=== PATIENT | male | born 1970 | race African-American/Black ===

== ENCOUNTER 2020-02-18 05:51 | Emergency (ER) | payer BC, OTHER ==
[2020-02-18] MEDS ORDERED: Ketorolac Tromethamine 30 MG/ML VIAL ONE (07:30)
== END 2020-02-18 07:56 | disposition home or self-care (01) ==
LOC: ERS 05:51
DX: M54.41 Lumbago with sciatica, right side (principal); I10 Essential (primary) hypertension; E78.5 Hyperlipidemia, unspecified; I25.2 Old myocardial infarction; R73.03 Prediabetes; F17.210 Nicotine dependence, cigarettes, uncomplicated
CPT/HCPCS: 96372; 99283; J1885

== ENCOUNTER 2020-03-05 15:06 | Emergency (ER) | payer BC ==
[2020-03-05] MEDS ORDERED: Morphine 4 MG/ML VIAL ONE (16:26)
== END 2020-03-05 17:24 | disposition home or self-care (01) ==
LOC: ERS 15:06
DX: M54.41 Lumbago with sciatica, right side (principal); I10 Essential (primary) hypertension; E78.5 Hyperlipidemia, unspecified; I25.2 Old myocardial infarction; E11.9 Type 2 diabetes mellitus without complications; F17.210 Nicotine dependence, cigarettes, uncomplicated
CPT/HCPCS: 96372; 99283; J2270

== ENCOUNTER 2020-12-07 04:09 | Inpatient (IN) | payer BC, OTHER, SELFPAY ==
[2020-12-07] MEDS ORDERED: Verapamil 5 MG/2 ML VIAL ONE (04:12)
[2020-12-07] MEDS ORDERED: Adenosine 6 MG/2 ML VIAL ONE (04:12)
[2020-12-07] MEDS ORDERED: Nitroglycerin 100MG/250ML BOT 0 ML ONE (04:12)
[2020-12-07] MEDS ORDERED: Morphine 4 MG/ML VIAL ONE ×2 (04:23)
[2020-12-07 04:36] LABS: #Basophils 0.1 thou/uL (0.0-0.2); #Eosinphils 0.2 thou/uL (0.0-0.7); #Lymphocytes 2.5 thou/uL (1.20-3.40); #Monocytes 0.7 thou/uL (0.11-0.59); #Neutrophils 4.6 thou/uL (1.40-6.50); %Basophils 0.8 % (0.0-1.0); %Eosinophils 2.4 % (0.0-10.0); %Lymphocytes 31.2 % (21.0-51.0); %Monocytes 8.3 % (0.0-10.0); %Neutrophils 57.2 % (42.0-75.0); Hemoglobin 13.7 g/dL (14.0-18.0); Mean Corpuscular HGB CONC 33.1 g/dL (32.0-36.0); Mean Corpuscular Hemoglobin 29.3 pg (27.0-31.0); Mean Corpuscular Volume 88.3 fL (78.0-98.0); Mean Platelet Volume 7.2 fL (7.4-10.4); Platelet Count 238 thou/uL (130-400); RBC Distribution Width 12.3 % (11.5-14.5); Red Blood Cell (RBC) Count 4.68 mill/uL (4.70-6.10)
[2020-12-07 04:47] LABS: INR-International Normal Ratio 1.1; Prothrombin Time 13.9 sec (12.0-14.7)
[2020-12-07 04:48] LABS: PTT 28.4 sec (22.9-36.1)
[2020-12-07 05:12] LABS: Anion Gap 16 mmol/L (10-20); BUN (Urea Nitrogen) 9 mg/dL (8.4-25.7); Calc. Creatinine Clearance 0 mL/min (70-130); Carbon Dioxide 23 mmol/L (22-29); Chloride 106 mmol/L (98-107); Potassium 3.8 mmol/L (3.5-5.1); Sodium 141 mmol/L (136-145)
[2020-12-07 05:13] LABS: ALT (SGPT) 11 U/L (8-55); AST (SGOT) 21 U/L (5-34); Albumin 4.1 g/dL (3.5-5.0); Alkaline Phosphatase 102 U/L (40-110); Bilirubin, Total 0.4 mg/dL (0.2-1.2); Calcium 8.9 mg/dL (7.8-10.44); Globulin 2.7 g/dL (2.4-3.5); Glucose 120 mg/dL (70-105); Protein, Total 6.8 g/dL (6.0-8.3)
[2020-12-07 06:05] VITALS: BMI 26.4
[2020-12-07] MEDS ORDERED: traMADol HCl 50 MG TAB PO PRN (06:41)
[2020-12-07] MEDS ORDERED: cloNIDine 0.1 MG TAB PO PRN (06:41)
[2020-12-07] MEDS ORDERED: Milk Of Magnesia 30 ML UDCUP PO PRN (06:41)
[2020-12-07] MEDS ORDERED: Sodium Chloride 0.9% 1,000 ML IV SCH (06:45)
[2020-12-07 08:12] LABS: Troponin I 35.435 ng/mL (< 0.028)
[2020-12-07] MEDS: Aspirin Chewable 81 MG TAB PO SCH (09:17)
[2020-12-07] MEDS: Clopidogrel Bisulfate 75 MG TAB PO SCH (09:17)
[2020-12-07] MEDS: Acetaminophen/Codeine 30-300mg Tablet PO PRN ×3 (10:47→20:00)
[2020-12-07 13:44] LABS: Troponin I 82.138 ng/mL (< 0.028)
[2020-12-07] MEDS ORDERED: Tenecteplase 50 MG - STEMI KIT ONE (14:33)
[2020-12-07] MEDS ORDERED: Iopamidol 370 76% 100 ML VIAL ONE (14:40)
[2020-12-07] MEDS ORDERED: Iopamidol 370 76% 50 ML VIAL FS ONE (14:40)
[2020-12-07 17:03] LABS: SARS-CoV-2 PCR by NAA Not Detected (NotDetected)
[2020-12-07] MEDS ORDERED: Morphine 4 MG/ML VIAL SLOW IVP PRN (18:24)
[2020-12-07] MEDS ORDERED: Furosemide 20 MG/2 ML VIAL SLOW IVP SCH (18:30)
[2020-12-07 19:30] LABS: Critical Call Chem Troponin I RESULT DECREASING; Troponin I 68.407 ng/mL (< 0.028)
[2020-12-07] MEDS: Atorvastatin Calcium 40 MG TAB PO SCH (20:01)
[2020-12-08 04:11] LABS: #Eosinphils 0.1 thou/uL (0.0-0.7); #Monocytes 0.6 thou/uL (0.11-0.59); #Neutrophils 5.6 thou/uL (1.40-6.50); %Basophils 0.3 % (0.0-1.0); %Eosinophils 1.4 % (0.0-10.0); %Lymphocytes 23.7 % (21.0-51.0); %Neutrophils 67.7 % (42.0-75.0); Hemoglobin 12.8 g/dL (14.0-18.0); Mean Corpuscular HGB CONC 32.9 g/dL (32.0-36.0); Mean Corpuscular Hemoglobin 28.9 pg (27.0-31.0); Mean Corpuscular Volume 87.9 fL (78.0-98.0); Mean Platelet Volume 7.2 fL (7.4-10.4); Platelet Count 219 thou/uL (130-400); RBC Distribution Width 12.4 % (11.5-14.5); Red Blood Cell (RBC) Count 4.44 mill/uL (4.70-6.10); White Blood Cell (WBC) Count 8.3 thou/uL (4.8-10.8)
[2020-12-08 04:29] LABS: ALT (SGPT) 40 U/L (8-55); AST (SGOT) 156 U/L (5-34); Albumin 3.7 g/dL (3.5-5.0); Alkaline Phosphatase 97 U/L (40-110); Anion Gap 14 mmol/L (10-20); BUN (Urea Nitrogen) 10 mg/dL (8.4-25.7); Bilirubin, Total 0.6 mg/dL (0.2-1.2); Calc. Creatinine Clearance 102 mL/min (70-130); Calcium 8.7 mg/dL (7.8-10.44); Carbon Dioxide 22 mmol/L (22-29); Chloride 105 mmol/L (98-107); Globulin 2.5 g/dL (2.4-3.5); Glucose 98 mg/dL (70-105); Potassium 3.9 mmol/L (3.5-5.1); Protein, Total 6.2 g/dL (6.0-8.3); Sodium 137 mmol/L (136-145)
[2020-12-08 07:02] LABS: Cardiac Risk 4.9 (Less than 4.5)
[2020-12-08] MEDS: Aspirin Chewable 81 MG TAB PO SCH (08:49)
[2020-12-08] MEDS: Clopidogrel Bisulfate 75 MG TAB PO SCH (08:49)
[2020-12-08] MEDS: Lisinopril 2.5 MG TAB PO SCH (12:38)
[2020-12-08 12:58] LABS: Amphetamine Not Detected (NotDetected); Barbiturates Screen Not Detected (NotDetected); Benzodiazepine Screen Not Detected (NotDetected); Cocaine Metabolite Screen Not Detected (NotDetected); Methadone Not Detected (NotDetected); Methamphetamine Not Detected (NotDetected); Opiate Screen Detected (NotDetected); Oxycodone Screen Not Detected (NotDetected); Phencyclidine (PCP) Not Detected (NotDetected); THC/Cannabinoid Screen Not Detected (NotDetected); Tricyclic Screen Not Detected (NotDetected)
[2020-12-08] MEDS: Acetaminophen/Codeine 30-300mg Tablet PO PRN (15:51)
[2020-12-08] MEDS: Carvedilol 3.125 MG TAB PO SCH (15:51)
[2020-12-08] MEDS: Zolpidem Tartrate 5 MG TAB PO PRN (21:00)
[2020-12-08] MEDS: Atorvastatin Calcium 40 MG TAB PO SCH (21:00)
[2020-12-09] MEDS: Lisinopril 2.5 MG TAB PO SCH (09:00)
[2020-12-09] MEDS: Carvedilol 3.125 MG TAB PO SCH ×2 (09:01→17:19)
[2020-12-09] MEDS: Clopidogrel Bisulfate 75 MG TAB PO SCH (09:01)
[2020-12-09] MEDS: Aspirin Chewable 81 MG TAB PO SCH (09:01)
[2020-12-09] MEDS: Acetaminophen/Codeine 30-300mg Tablet PO PRN (14:41)
[2020-12-09] MEDS: Zolpidem Tartrate 5 MG TAB PO PRN (20:48)
[2020-12-09] MEDS: Atorvastatin Calcium 40 MG TAB PO SCH (20:48)
[2020-12-10] MEDS: Acetaminophen/Codeine 30-300mg Tablet PO PRN (07:51)
[2020-12-10] MEDS ORDERED: FLU VACC QS2021-22(6MOS UP)/PF 60 MCG/0.5 ML SYRINGE IM ONE (09:00)
[2020-12-10] MEDS: Aspirin Chewable 81 MG TAB PO SCH (09:26)
[2020-12-10] MEDS: Clopidogrel Bisulfate 75 MG TAB PO SCH (09:26)
[2020-12-10] MEDS: Carvedilol 3.125 MG TAB PO SCH ×2 (09:26→17:53)
[2020-12-10] MEDS: Lisinopril 2.5 MG TAB PO SCH (11:07)
[2020-12-10 21:21] LABS: #Basophils 0.1 thou/uL (0.0-0.2); #Eosinphils 0.3 thou/uL (0.0-0.7); #Lymphocytes 2.5 thou/uL (1.20-3.40); #Neutrophils 4.6 thou/uL (1.40-6.50); %Basophils 0.8 % (0.0-1.0); %Eosinophils 3.5 % (0.0-10.0); %Monocytes 11.3 % (0.0-10.0); %Neutrophils 54.5 % (42.0-75.0); Hemoglobin 13.6 g/dL (14.0-18.0); Mean Corpuscular HGB CONC 32.9 g/dL (32.0-36.0); Mean Corpuscular Hemoglobin 28.4 pg (27.0-31.0); Mean Corpuscular Volume 86.3 fL (78.0-98.0); Mean Platelet Volume 7.4 fL (7.4-10.4); Platelet Count 229 thou/uL (130-400); RBC Distribution Width 12.2 % (11.5-14.5); Red Blood Cell (RBC) Count 4.78 mill/uL (4.70-6.10); White Blood Cell (WBC) Count 8.5 thou/uL (4.8-10.8)
[2020-12-10] MEDS: Atorvastatin Calcium 40 MG TAB PO SCH (21:23)
[2020-12-10] MEDS: Zolpidem Tartrate 5 MG TAB PO PRN (21:23)
[2020-12-11 05:19] LABS: #Eosinphils 0.2 thou/uL (0.0-0.7); #Lymphocytes 1.6 thou/uL (1.20-3.40); #Monocytes 0.6 thou/uL (0.11-0.59); #Neutrophils 3.3 thou/uL (1.40-6.50); %Basophils 0.6 % (0.0-1.0); %Eosinophils 2.8 % (0.0-10.0); %Lymphocytes 28.3 % (21.0-51.0); %Monocytes 10.5 % (0.0-10.0); %Neutrophils 57.8 % (42.0-75.0); Hemoglobin 13.2 g/dL (14.0-18.0); Mean Corpuscular HGB CONC 32.7 g/dL (32.0-36.0); Mean Corpuscular Hemoglobin 28.5 pg (27.0-31.0); Mean Platelet Volume 7.6 fL (7.4-10.4); Platelet Count 217 thou/uL (130-400); RBC Distribution Width 12.1 % (11.5-14.5); Red Blood Cell (RBC) Count 4.62 mill/uL (4.70-6.10); White Blood Cell (WBC) Count 5.7 thou/uL (4.8-10.8)
[2020-12-11] MEDS ORDERED: Sodium Chloride 0.9% 10 ML ONE (08:15)
[2020-12-11] MEDS: Clopidogrel Bisulfate 75 MG TAB PO SCH ×2 (08:44→08:49)
[2020-12-11] MEDS: Lisinopril 2.5 MG TAB PO SCH (08:44)
[2020-12-11] MEDS: Carvedilol 3.125 MG TAB PO SCH (08:44)
[2020-12-11 08:47] VITALS: BP 113/74
[2020-12-11] MEDS: Aspirin Chewable 81 MG TAB PO SCH (08:49)
[2020-12-11 08:59] VITALS: TEMP 98.1
[2020-12-11] MEDS ORDERED: Carvedilol 6.25 MG TAB PO SCH (17:00)
[2020-12-11] MEDS ORDERED: Carvedilol 3.125 MG TAB PO SCH (17:00)
[2020-12-12] MEDS ORDERED: Lisinopril 5 MG TAB PO SCH (09:00)
[2020-12-12] MEDS ORDERED: Lisinopril 2.5 MG TAB PO SCH (09:00)
== END 2020-12-11 16:25 | disposition home or self-care (01) | DRG 246 ==
LOC: ERS 04:09 → SDC/OP 04:34 → CCU 05:12 → 2NO 12-08 13:21
PROVIDERS: ADMIT Internal Medicine Cardiovascular Disease; ATTEND Internal Medicine Cardiovascular Disease
PROC: 027035Z Dilation of Coronary Artery, One Artery with Two Drug-eluting Intraluminal Devices, Percutaneous Approach (ICD-10-PCS; principal; 2020-12-07)
PROC: 4A023N7 Measurement of Cardiac Sampling and Pressure, Left Heart, Percutaneous Approach (ICD-10-PCS; 2020-12-07)
PROC: B2151ZZ Fluoroscopy of Left Heart using Low Osmolar Contrast (ICD-10-PCS; 2020-12-07)
PROC: B2111ZZ Fluoroscopy of Multiple Coronary Arteries using Low Osmolar Contrast (ICD-10-PCS; 2020-12-07)
DX: T82.855A Stenosis of coronary artery stent, initial encounter (principal); I21.09 ST elevation (STEMI) myocardial infarction involving other coronary artery of anterior wall; I25.10 Atherosclerotic heart disease of native coronary artery without angina pectoris; Z20.822 Contact with and (suspected) exposure to COVID-19; F17.210 Nicotine dependence, cigarettes, uncomplicated; E11.9 Type 2 diabetes mellitus without complications; Z88.0 Allergy status to penicillin; Z91.19 Patient's noncompliance with other medical treatment and regimen; I25.2 Old myocardial infarction; Z95.5 Presence of coronary angioplasty implant and graft; Z82.49 Family history of ischemic heart disease and other diseases of the circulatory system; Y83.8 Other surgical procedures as the cause of abnormal reaction of the patient, or of later complication, without mention of misadventure at the time of the procedure; E78.2 Mixed hyperlipidemia
CPT/HCPCS: 36415; 71045; 76942; 80053; 80061; 80306; 82274; 82553; 84484; 85025; 85347; 85610; 85730; 92928; 93005; 93010; 93306; 93458; 93798; 96374; 96375; 99152; 99153; C1769; C9600; J0153; J1940; J2270; J3101; J7050; Q9967; U0003; U0005

== ENCOUNTER 2021-06-04 10:34 | Outpatient (CLI) | payer MEDICAID | END 2021-06-04 10:35 | disposition home or self-care (01) | LOC: BICRAD 10:34 | PROVIDERS: ATTEND Internal Medicine Cardiovascular Disease | DX: I50.22 Chronic systolic (congestive) heart failure (principal); I51.7 Cardiomegaly; Z95.810 Presence of automatic (implantable) cardiac defibrillator | CPT/HCPCS: 71046 ==

== ENCOUNTER 2021-06-12 13:31 | Outpatient (CLI) | payer MEDICAID ==
[2021-06-12 15:10] LABS: Hemoglobin 13.2 g/dL (13.5-17.5); Mean Corpuscular HGB CONC 32.8 g/dL (32.0-36.0); Mean Corpuscular Volume 85.4 fl (81.2-95.1); Mean Platelet Volume 9.9 fl (7.4-10.4); Platelet Count 210 10x3/uL (150-450); RBC Distribution Width 13.9 % (11.5-14.5); Red Blood Cell (RBC) Count 4.71 10x6/uL (4.32-5.72); White Blood Cell (WBC) Count 6.5 10x3/uL (3.5-10.5)
[2021-06-12 15:21] LABS: INR-International Normal Ratio 1.1; PTT 25.6 sec (22.0-33.0); Prothrombin Time 12.3 sec (9.5-12.1)
[2021-06-12 15:42] LABS: Anion Gap 13 mmol/L (10-20); BUN (Urea Nitrogen) 14 mg/dL (8.4-25.7); Calc. Creatinine Clearance 0 mL/min (70-130); Calcium 8.9 mg/dL (7.8-10.44); Carbon Dioxide 24 mmol/L (22-29); Chloride 107 mmol/L (98-107); Glucose 93 mg/dL (70-105); Sodium 140 mmol/L (136-145)
[2021-06-13 16:05] LABS: SARS-CoV-2 PCR by NAA Not Detected (NotDetected)
== END 2021-06-12 13:32 | disposition home or self-care (01) ==
LOC: LABBT 13:31
PROVIDERS: ATTEND Internal Medicine Cardiovascular Disease
DX: Z01.812 Encounter for preprocedural laboratory examination (principal); Z20.822 Contact with and (suspected) exposure to COVID-19
CPT/HCPCS: 80048; 85027; 85610; 85730; U0003; U0005

== ENCOUNTER 2021-06-15 12:03 | Day surgery (SDC) | payer MEDICAID ==
[2021-06-11 11:59] VITALS: BMI 26.4
[2021-06-15] MEDS ORDERED: Fentanyl 100 MCG/2 ML VIAL ONE (15:41)
[2021-06-15] MEDS ORDERED: Propofol 1,000 MG/100 ML VIAL IV ONE (15:41)
[2021-06-15] MEDS ORDERED: Lidocaine 1% (PF) 30 ML VIAL ONE (16:42)
[2021-06-15] MEDS ORDERED: Clindamycin/D5W 600 mg/50 ml Premix Bag ONE (16:46)
[2021-06-15] MEDS ORDERED: Clindamycin/D5W 900 mg/50 ml Premix Bag ONE (16:46)
[2021-06-15] MEDS ORDERED: Midazolam HCl 2 mg/2 ml Vial ONE (16:47)
[2021-06-15] MEDS ORDERED: Acetaminophen/Codeine 30-300mg Tablet ONE ×2 (18:57)
[2021-06-15] MEDS ORDERED: Acetaminophen/Codeine 30-300mg Tablet PO SCH (19:15)
[2021-06-15] MEDS ORDERED: Morphine 2 MG/ML VIAL SLOW IVP PRN (19:30)
== END 2021-06-15 19:52 | disposition home or self-care (01) ==
LOC: SDC 12:03
PROVIDERS: ATTEND Internal Medicine Cardiovascular Disease
PROC: 0JW Subcutaneous Tissue and Fascia, Revision (ICD-10-PCS; principal; 2021-06-15)
PROC: 3E0132A Introduction of Anti-Infective Envelope into Subcutaneous Tissue, Percutaneous Approach (ICD-10-PCS; principal; 2021-06-15)
DX: T82.120A Displacement of cardiac electrode, initial encounter (principal); I50.22 Chronic systolic (congestive) heart failure; I25.5 Ischemic cardiomyopathy; I25.2 Old myocardial infarction; I25.10 Atherosclerotic heart disease of native coronary artery without angina pectoris; E78.2 Mixed hyperlipidemia; Z87.891 Personal history of nicotine dependence; Z79.02 Long term (current) use of antithrombotics/antiplatelets; Z79.82 Long term (current) use of aspirin; Z79.899 Other long term (current) drug therapy; Z88.0 Allergy status to penicillin; Z95.5 Presence of coronary angioplasty implant and graft; Z95.810 Presence of automatic (implantable) cardiac defibrillator
CPT/HCPCS: 33226; 93642; J2001; J2250; J2704; J3010; J3490

== ENCOUNTER 2021-10-24 15:22 | Inpatient (IN) | payer MEDICAID, OTHER ==
[2021-10-24] MEDS ORDERED: Morphine 4 MG/ML VIAL ONE (16:12)
[2021-10-24 16:58] LABS: #Basophils 0.1 thou/uL (0.0-0.2); #Eosinphils 0.1 thou/uL (0.0-0.7); #Lymphocytes 2.2 thou/uL (1.20-3.40); #Monocytes 0.6 thou/uL (0.11-0.59); #Neutrophils 4.6 thou/uL (1.40-6.50); %Basophils 0.7 % (0.0-1.0); %Lymphocytes 29.4 % (21.0-51.0); %Monocytes 8.2 % (0.0-10.0); %Neutrophils 60.7 % (42.0-75.0); Hemoglobin 14.8 g/dL (14.0-18.0); Mean Corpuscular HGB CONC 33.4 g/dL (32.0-36.0); Mean Corpuscular Hemoglobin 29.3 pg (27.0-31.0); Mean Corpuscular Volume 87.7 fL (78.0-98.0); Mean Platelet Volume 7.1 fL (7.4-10.4); Platelet Count 191 thou/uL (130-400); RBC Distribution Width 12.6 % (11.5-14.5); Red Blood Cell (RBC) Count 5.06 mill/uL (4.70-6.10); White Blood Cell (WBC) Count 7.6 thou/uL (4.8-10.8)
[2021-10-24 17:18] LABS: ALT (SGPT) 10 U/L (8-55); AST (SGOT) 17 U/L (5-34); Albumin 4.3 g/dL (3.5-5.0); Alkaline Phosphatase 116 U/L (40-110); Anion Gap 16 mmol/L (10-20); BUN (Urea Nitrogen) 10 mg/dL (8.4-25.7); Bilirubin, Total 0.5 mg/dL (0.2-1.2); Calc. Creatinine Clearance 0 mL/min (70-130); Calcium 9.3 mg/dL (7.8-10.44); Carbon Dioxide 21 mmol/L (22-29); Chloride 105 mmol/L (98-107); Estimated GFR 73; Glucose 93 mg/dL (70-105); Potassium 3.7 mmol/L (3.5-5.1); Protein, Total 7.3 g/dL (6.0-8.3); Sodium 138 mmol/L (136-145)
[2021-10-24] MEDS ORDERED: Nitroglycerin 0.4 MG TAB 1 EACH ONE (17:46)
[2021-10-24] MEDS ORDERED: diphenhydrAMINE 50 MG/ML VIAL ONE (17:47)
[2021-10-24 20:02] VITALS: BMI 26.5
[2021-10-24] MEDS ORDERED: Ondansetron PF 4 MG/2 ML Vial IVP PRN (20:39)
[2021-10-24] MEDS ORDERED: Ondansetron ODT 4 MG TAB PO PRN (20:39)
[2021-10-24] MEDS ORDERED: Bisacodyl 10 MG SUPP PR PRN (20:39)
[2021-10-24] MEDS ORDERED: Acetaminophen 650 MG Suppository PR PRN (20:39)
[2021-10-24] MEDS ORDERED: Guaifenesin DM 100-10/5 ML UDCUP PO PRN (20:39)
[2021-10-24] MEDS ORDERED: Bisacodyl 5 MG TAB PO PRN (20:39)
[2021-10-24] MEDS ORDERED: Nitroglycerin 2% Ointment 1 INCH/1 GM Packet TOP SCH (21:00)
[2021-10-24 21:09] LABS: Troponin I 0.012 ng/mL (< 0.028)
[2021-10-24] MEDS: Nitroglycerin 2% Ointment 1 INCH/1 GM Packet TOP SCH (21:21)
[2021-10-24] MEDS: Famotidine 20 MG TAB PO SCH (21:21)
[2021-10-24] MEDS: Atorvastatin Calcium 40 MG TAB PO SCH (21:21)
[2021-10-24] MEDS: Famotidine/PF 20 mg/2ml Vial SLOW IVP SCH (21:22)
[2021-10-24] MEDS ORDERED: hydrALAZINE 20 MG/ML VIAL SLOW IVP PRN (21:55)
[2021-10-25 05:40] LABS: INR-International Normal Ratio 1.1; Prothrombin Time 14.7 sec (12.0-14.7)
[2021-10-25 05:41] LABS: PTT 30.7 sec (22.9-36.1)
[2021-10-25 05:57] LABS: Anion Gap 15 mmol/L (10-20); BUN (Urea Nitrogen) 19 mg/dL (8.4-25.7); Calc. Creatinine Clearance 92 mL/min (70-130); Calcium 8.9 mg/dL (7.8-10.44); Carbon Dioxide 25 mmol/L (22-29); Chloride 104 mmol/L (98-107); Estimated GFR 77; Glucose 103 mg/dL (70-105); Potassium 3.6 mmol/L (3.5-5.1); Sodium 140 mmol/L (136-145)
[2021-10-25] MEDS: Nitroglycerin 2% Ointment 1 INCH/1 GM Packet TOP SCH ×3 (07:44→21:57)
[2021-10-25] MEDS: Acetaminophen 325 MG TAB PO PRN ×2 (08:18→21:05)
[2021-10-25] MEDS: Carvedilol 6.25 MG TAB PO SCH ×2 (08:19→16:29)
[2021-10-25] MEDS: Furosemide 20 MG TAB PO SCH (08:20)
[2021-10-25] MEDS: Clopidogrel Bisulfate 75 MG TAB PO SCH (08:20)
[2021-10-25] MEDS: Aspirin 81 mg Enteric Coated Tablet PO SCH (08:20)
[2021-10-25] MEDS: Famotidine 20 MG TAB PO SCH ×2 (08:20→21:08)
[2021-10-25] MEDS: Famotidine/PF 20 mg/2ml Vial SLOW IVP SCH ×2 (08:21→20:57)
[2021-10-25] MEDS: Atorvastatin Calcium 40 MG TAB PO SCH (21:08)
[2021-10-25] MEDS: Enoxaparin Sodium 100 MG/ML SYRINGE SC SCH (21:10)
[2021-10-26] MEDS: Nitroglycerin 2% Ointment 1 INCH/1 GM Packet TOP SCH ×3 (06:34→21:24)
[2021-10-26] MEDS: Carvedilol 6.25 MG TAB PO SCH ×2 (09:16→17:08)
[2021-10-26] MEDS: Enoxaparin Sodium 100 MG/ML SYRINGE SC SCH ×2 (09:17→21:28)
[2021-10-26] MEDS: Aspirin 81 mg Enteric Coated Tablet PO SCH (09:17)
[2021-10-26] MEDS: Famotidine 20 MG TAB PO SCH ×2 (09:17→21:21)
[2021-10-26] MEDS: Clopidogrel Bisulfate 75 MG TAB PO SCH (09:17)
[2021-10-26] MEDS: Famotidine/PF 20 mg/2ml Vial SLOW IVP SCH ×2 (09:18→21:28)
[2021-10-26] MEDS: Furosemide 20 MG TAB PO SCH (09:18)
[2021-10-26] MEDS ORDERED: Communication Order-Pharmacy FS PRN (09:45)
[2021-10-26 17:26] LABS: #Eosinphils 0.2 thou/uL (0.0-0.7); #Lymphocytes 2.4 thou/uL (1.20-3.40); #Monocytes 0.6 thou/uL (0.11-0.59); #Neutrophils 3.9 thou/uL (1.40-6.50); %Basophils 0.6 % (0.0-1.0); %Eosinophils 3.1 % (0.0-10.0); %Lymphocytes 33.7 % (21.0-51.0); %Monocytes 8.3 % (0.0-10.0); %Neutrophils 54.3 % (42.0-75.0); Hemoglobin 14.3 g/dL (14.0-18.0); Mean Corpuscular HGB CONC 33.5 g/dL (32.0-36.0); Mean Corpuscular Hemoglobin 29.5 pg (27.0-31.0); Mean Corpuscular Volume 87.9 fL (78.0-98.0); Platelet Count 191 thou/uL (130-400); RBC Distribution Width 12.4 % (11.5-14.5); Red Blood Cell (RBC) Count 4.86 mill/uL (4.70-6.10); White Blood Cell (WBC) Count 7.2 thou/uL (4.8-10.8)
[2021-10-26 17:47] LABS: ALT (SGPT) 14 U/L (8-55); AST (SGOT) 17 U/L (5-34); Albumin 4.2 g/dL (3.5-5.0); Alkaline Phosphatase 108 U/L (40-110); Anion Gap 15 mmol/L (10-20); BUN (Urea Nitrogen) 15 mg/dL (8.4-25.7); Bilirubin, Total 0.4 mg/dL (0.2-1.2); Calc. Creatinine Clearance 88 mL/min (70-130); Calcium 8.9 mg/dL (7.8-10.44); Carbon Dioxide 24 mmol/L (22-29); Chloride 105 mmol/L (98-107); Estimated GFR 73; Globulin 2.9 g/dL (2.4-3.5); Glucose 139 mg/dL (70-105); Potassium 3.7 mmol/L (3.5-5.1); Protein, Total 7.1 g/dL (6.0-8.3); Sodium 140 mmol/L (136-145)
[2021-10-26] MEDS ORDERED: diphenhydrAMINE 25 MG CAP PO SCH (21:00)
[2021-10-26] MEDS: Atorvastatin Calcium 40 MG TAB PO SCH (21:20)
[2021-10-26] MEDS: Acetaminophen 325 MG TAB PO PRN (21:23)
[2021-10-27 05:05] VITALS: BP 107/59; TEMP 97.7
[2021-10-27] MEDS: Famotidine 20 MG TAB PO SCH (05:13)
[2021-10-27] MEDS: Clopidogrel Bisulfate 75 MG TAB PO SCH (05:13)
[2021-10-27] MEDS: Carvedilol 6.25 MG TAB PO SCH (05:13)
[2021-10-27] MEDS: Nitroglycerin 2% Ointment 1 INCH/1 GM Packet TOP SCH (05:14)
[2021-10-27] MEDS: Aspirin 81 mg Enteric Coated Tablet PO SCH (05:14)
[2021-10-27] MEDS: Furosemide 20 MG TAB PO SCH (05:14)
[2021-10-27] MEDS: Famotidine/PF 20 mg/2ml Vial SLOW IVP SCH (05:14)
[2021-10-27] MEDS ORDERED: Lidocaine 1% PF 5 ML VIAL ONE (06:44)
[2021-10-27] MEDS ORDERED: Midazolam HCl 2 mg/2 ml Vial ONE (07:18)
[2021-10-27] MEDS ORDERED: Fentanyl 100 MCG/2 ML VIAL ONE (07:18)
== END 2021-10-27 08:54 | disposition left against medical advice (07) | DRG 303 ==
LOC: ERS 15:22 → 2SW 18:11
PROVIDERS: ADMIT Internal Medicine; ATTEND Internal Medicine
DX: I25.110 Atherosclerotic heart disease of native coronary artery with unstable angina pectoris (principal); I50.42 Chronic combined systolic (congestive) and diastolic (congestive) heart failure; I13.0 Hypertensive heart and chronic kidney disease with heart failure and stage 1 through stage 4 chronic kidney disease, or unspecified chronic kidney disease; Z20.822 Contact with and (suspected) exposure to COVID-19; I08.3 Combined rheumatic disorders of mitral, aortic and tricuspid valves; E78.2 Mixed hyperlipidemia; I25.5 Ischemic cardiomyopathy; F12.10 Cannabis abuse, uncomplicated; E78.5 Hyperlipidemia, unspecified; N18.2 Chronic kidney disease, stage 2 (mild); I25.2 Old myocardial infarction; Z95.5 Presence of coronary angioplasty implant and graft; Z95.810 Presence of automatic (implantable) cardiac defibrillator; Z88.5 Allergy status to narcotic agent; Z88.0 Allergy status to penicillin; Z79.82 Long term (current) use of aspirin; Z79.02 Long term (current) use of antithrombotics/antiplatelets; Z79.899 Other long term (current) drug therapy; Z82.49 Family history of ischemic heart disease and other diseases of the circulatory system; Z83.3 Family history of diabetes mellitus; Z87.891 Personal history of nicotine dependence
CPT/HCPCS: 36415; 71046; 80048; 80053; 84484; 85025; 85610; 85730; 93005; 93306; 94760; 96374; 96375; C1769; C1894; J1200; J1650; J2250; J2270; J3010; U0003; U0005

== ENCOUNTER 2022-01-28 07:12 | Emergency (ER) | payer MEDICAID, OTHER ==
[2022-01-28 08:12] LABS: #Eosinphils 0.2 thou/uL (0.0-0.7); #Lymphocytes 1.1 thou/uL (1.20-3.40); #Monocytes 0.6 thou/uL (0.11-0.59); #Neutrophils 4.3 thou/uL (1.40-6.50); %Basophils 0.3 % (0.0-1.0); %Eosinophils 2.9 % (0.0-10.0); %Lymphocytes 17.9 % (21.0-51.0); %Monocytes 10.1 % (0.0-10.0); %Neutrophils 68.8 % (42.0-75.0); Mean Corpuscular HGB CONC 32.6 g/dL (32.0-36.0); Mean Corpuscular Hemoglobin 29.7 pg (27.0-31.0); Mean Corpuscular Volume 90.9 fl (78.0-98.0); Mean Platelet Volume 7.1 fL (7.4-10.4); Platelet Count 168 10x3/uL (130-400); RBC Distribution Width 12.4 % (11.5-14.5); Red Blood Cell (RBC) Count 4.73 mill/uL (4.70-6.10); White Blood Cell (WBC) Count 6.3 10x3/uL (4.8-10.8)
[2022-01-28 08:28] LABS: ALT (SGPT) 10 U/L (8-55); AST (SGOT) 14 U/L (5-34); Albumin 4.3 g/dL (3.5-5.0); Alkaline Phosphatase 125 U/L (40-110); Anion Gap 15 mmol/L (10-20); BUN (Urea Nitrogen) 6 mg/dL (8.4-25.7); Bilirubin, Total 0.7 mg/dL (0.2-1.2); Calc. Creatinine Clearance 0 mL/min (70-130); Calcium 8.8 mg/dL (7.8-10.44); Carbon Dioxide 25 mmol/L (22-29); Chloride 106 mmol/L (98-107); Estimated GFR 84; Globulin 2.3 g/dL (2.4-3.5); Glucose 100 mg/dL (70-105); Magnesium 2.2 mg/dL (1.6-2.6); Potassium 3.9 mmol/L (3.5-5.1); Protein, Total 6.6 g/dL (6.0-8.3); Sodium 142 mmol/L (136-145)
[2022-01-28] MEDS ORDERED: Acetaminophen 500 MG TAB ONE (08:57)
[2022-01-28] MEDS ORDERED: Ketorolac Tromethamine 30 MG/ML VIAL ONE (08:57)
[2022-01-28 10:33] LABS: SARS-CoV-2 NAA Rapid Test Not Detected (NotDetected)
== END 2022-01-28 11:56 | disposition home or self-care (01) ==
LOC: ERS 07:12
DX: M54.50 Low back pain, unspecified (principal); R05.9 Cough, unspecified; M79.601 Pain in right arm; E78.00 Pure hypercholesterolemia, unspecified; I25.2 Old myocardial infarction; Z20.822 Contact with and (suspected) exposure to COVID-19; Z79.899 Other long term (current) drug therapy
CPT/HCPCS: 36415; 71045; 80053; 83735; 83880; 84484; 85025; 93005; 96372; J1885